=== PATIENT | female | born 1995 | race Caucasian/White ===

== ENCOUNTER 2016-08-14 10:40 | Inpatient (IN) | payer MEDICAID ==
[~2016-08-14] VITALS: Ht 157.5 cm; Wt 69.5 kg
[2016-08-15] MEDS ORDERED: IBUPROFEN 600 MG TAB PO PRN (18:30)
[2016-08-15] MEDS ORDERED: BUTORPHANOL 2 MG INJ IV PRN (18:30)
[2016-08-15] MEDS ORDERED: OXYTOCIN 30 UNITS/LR 500 ML IV SCH ×2 (18:30)
[2016-08-15] MEDS ORDERED: MISOPROSTOL 200 MCG TAB PR PRN (18:30)
[2016-08-15] MEDS ORDERED: LACTATED RINGER'S 1,000 ML IV PRN (18:30)
[2016-08-15] MEDS ORDERED: LIDOCAINE 1% (MPF) 30 ML INJ INJ PRN (18:30)
[2016-08-15] MEDS ORDERED: CARBOPROST 250 MCG INJ IM PRN (18:30)
[2016-08-15] MEDS ORDERED: OXYTOCIN 30 UNITS/LR 500 ML IV PRN (18:30)
[2016-08-15] MEDS ORDERED: METHYLERGONOVINE 0.2 MG INJ IM PRN (18:30)
[2016-08-15] MEDS: LACTATED RINGER'S 1,000 ML IV SCH (18:30)
[2016-08-15 18:41] VITALS: Ht 157.5 cm; Wt 69.5 kg
[2016-08-15 18:46] VITALS: BP 106/66; PULSE 80; RESP 18
[2016-08-15 19:15] LABS: HEMATOCRIT 36.6 % (37.0-47.0); HEMOGLOBIN 12.4 g/dl (12.0-16.0); MEAN CORPUSCULAR HGB CONC 33.7 g/dl (32.0-37.0); MEAN PLATELET VOLUME 9.1 fl (7.4-10.4); PLATELET COUNT 219 10^3/UL (140-440); RED BLOOD COUNT 3.74 10^6/ul (4.20-5.40); RED CELL DISTRIBUTION WIDTH 14.9 % (11.5-14.5); UNCORRECTED WBC 9.8 10^3/ul (4.8-10.8); WHITE BLOOD COUNT 9.8 10^3/ul (4.8-10.8)
[2016-08-15 19:25] LABS: INR 1.03; PROTIME 13.5 Sec (12.2-14.2); PT RATIO 1.1
[2016-08-15 19:26] LABS: PARTIAL THROMBOPLASTIN TIME 28.1 Sec (25.0-35.0)
[2016-08-15 19:31] LABS: CONDITION 1
[2016-08-15 19:32] LABS: LH ANALYZER COMMENTS 1
[2016-08-15] MEDS ORDERED: DINOPROSTONE 10 MG VAG SUPP VAG ONE (20:00)
[2016-08-15 20:31] LABS: ANISOCYTOSIS 1+; PLATELET ESTIMATE PLT APPEAR ADEQUATE
[2016-08-16] MEDS: LACTATED RINGER'S 1,000 ML IV SCH ×4 (02:15→23:37)
[2016-08-16] MEDS ORDERED: MINERAL OIL LIGHT 10 ML VIAL TOP ONE (08:00)
--- NOTE | 2016-08-16 18:43 | HP ---
Date/Time of Note Date/Time of Note DATE: 08/16/16 TIME: 18:40 OB - History Hx of Present Free Text/Dictation admitted for elective iduction of the labor at 40 weeks Last Menstrual Period: November 10, 2015 Estimated Due Date: Aug 14, 2016 : 1 Para: 0 Care: Good Care Ultrasounds: Normal mid trimester US Obstetrical Complications: None Medical Complications: None Past Family/Social History * Past Medical, Surgical, Family and Obstetric Histories reviewed from chart. Blood Type: A+ Rubella: immune RPR/VDRL: Negative GBS Status: Negative HBsAG: Negative OB Admission Exam Vital Signs Vital Signs Vital Signs Date Time Temp Pulse Resp B/P Pulse Ox O2 Delivery O2 Flow Rate FiO2 08/15/16 18:46 99.0 80 18 106/66 Room Air Physical Exam HEENT: WNL Heart: Rhythm Normal Lungs: Clear, Equal Abdomen: WNL Extremities: Normal Reflexes: Normal Cervical Dilatation: None Station: -3 Membranes: Intact Heart Rate: 140's Accelerations: Accelerations Present Decelerations: No Decelerations Varibility: Marked Contractions on Admission: None Last 72 hours Lab Results CBC & BMP 08/15/16 18:30 OB Assessment/Plan Reason for admission: induction of labor Other Assessment: term gestation Induction Method: per Misoprostol Protocol MYRA HERNANDEZ MD Aug 16, 2016 18:43
[2016-08-16] MEDS ORDERED: OXYTOCIN 30 UNITS/LR 500 ML IV SCH (22:30)
[2016-08-17] MEDS ORDERED: FENTAnyl 2MCG/ML-ROPIV 0.2% 100 ML ONE (01:47)
[2016-08-17] MEDS ORDERED: GENTAMICIN 120 MG/NS (PMX) 100 ML IVPB ONE (02:00)
[2016-08-17] MEDS: LACTATED RINGER'S 1,000 ML IV SCH ×4 (02:00→10:36)
[2016-08-17] MEDS: AMPICILLIN 2 GM/NS (PMX) 100 ML IVPB SCH ×5 (02:24→17:29)
[2016-08-17] MEDS ORDERED: KETOROLAC 30 MG INJ IV PRN (03:00)
[2016-08-17] MEDS ORDERED: morphine 2 MG INJ IV PRN (03:00)
[2016-08-17] MEDS ORDERED: NALOXONE (0.4 MG/ML) INJ IV PRN (03:00)
[2016-08-17] MEDS ORDERED: FENTAnyl 2MCG/ML-ROPIV 0.2% 100 ML BAG EPI SCH (03:00)
[2016-08-17] MEDS ORDERED: DIPHENHYDRAMINE 50 MG INJ IV PRN (03:00)
[2016-08-17] MEDS ORDERED: HYDROmorphONE 1 MG/ML SYG IV PRN ×2 (03:00)
[2016-08-17] MEDS ORDERED: ONDANSETRON 4 MG INJ IV PRN (03:00)
[2016-08-17] MEDS ORDERED: morphine 4 MG/ML VIAL IV PRN (03:00)
[2016-08-17] MEDS: ACETAMINOPHEN 325 MG TAB PO PRN ×2 (06:08→16:29)
[2016-08-17] MEDS ORDERED: GENTAMICIN 80 MG/NS (PMX) 50 ML IVPB SCH (10:00)
[2016-08-17] MEDS ORDERED: MINERAL OIL LIGHT 10 ML VIAL TOP ONE (15:30)
--- NOTE | 2016-08-17 19:44 | LDN ---
Date/Time of Note Date/Time of Note DATE: 08/17/16 TIME: 19:41 Delivery Summary V/E of a viable infant over intact perneum Assisted Vaginal Delivery: Vacuum (vacuome extraction was done because of deep variable decelerations) Meconium: none Perineum intact?: Yes Perineal laceration repair: small vaginal llaceration was repaired with 2 0 Vicryl Anesthesia type: Epidural Estimated blood loss: 300 Sponge & Needle done & correct: Yes All needle counts correct: Yes Any foreign bodies felt in the: No Problems: Delivery Information Sex Infant Sex: female Apgars 1 Minute: 8 5 Minute: 9 Suctioning Nose & mouth suctioned at gay: Yes Delee suction performed: No Umbilical Cord Umbilical cord with: 3 Vessels Cord presentations: nuchal cord Nuchal cord present X: 1 Cord Blood was obtained: Yes Mother & Baby Disposition Disposition Mom & Baby to Maternity; Good: Yes (mother and baby were recovered in good condition ) Mom transferred to: Other (maternity ) Baby to NICU: No MYRA HERNANDEZ MD Aug 17, 2016 19:44
[2016-08-17 22:20] VITALS: BP 105/65; PULSE 66; RESP 20
--- NOTE | 2016-08-17 22:31 | DELSUM ---
Delivery Summary A-C Datetime Report Generated by N: 08/17/2016 22:31 DELIVERY PERSONNEL Cemetery Laborer: Canuto, Alycia MATERNAL INFORMATION Delivery Anesthesia: Epidural (Annotations: Data stored by [facility] on behalf of user) Medications in Delivery: LR WITH 30 UNITS OF PITOCIN Estimated Blood Loss (ml): 300 Placenta Cultured: No Maternal Complications: Maternal Fever LABOR SUMMARY EDC: 08/14/2016 00:00 No. Babies in Womb: 1 Attempted: No Labor Anesthesia: Epidural LABOR INFORMATION Reason for Induction: Postterm Onset of Labor: 08/17/2016 01:30 Complete Dilatation: 08/17/2016 16:00 Cervical Ripening Agents: Cervidil Oxytocin: Augmentation Group B Beta Strep: Negative Antibiotics # of Doses: 8 Antibiotics Time of Last Dose: 08/17/2016 17:30 Steroids Given: None Reason Steroids Not Administered: Not Applicable MEMBRANES Membranes Rupture Method: Spontaneous Membranes Rupture Method: Spontaneous Rupture of Membranes: 08/17/2016 15:44 Length of Rupture (hr): 3.62 Amniotic Fluid Color: Clear Amniotic Fluid Amount: Small Amniotic Fluid Amount: Small Amniotic Fluid Odor: None Amniotic Fluid Odor: Normal STAGES OF LABOR Stage 1 hr: 14 Stage 1 min: 30 Stage 2 hr: 3 Stage 2 min: 21 Stage 3 hr: 0 Stage 3 min: 5 Total Time in Labor hr: 17 Total Time in Labor min: 56 VAGINAL DELIVERY Episiotomy: None Laceration Extension: N/A Laceration Type: Vaginal Laceration Repair: Yes Initial Vag Sponge Count: 20 Final Vag Sponge Count: 20 Initial Vag Sharps Count: 1 Final Vag Sharps Count: 2 Sponge Count Correct: Yes; Vaginal Sweep Performed Sharps Count Correct: Yes Count Comment: VAGINAL CURETTE ADDED BABY A INFORMATION Infant Delivery Date/Time: 08/17/2016 19:21 Method of Delivery: Vaginal Method of Delivery: Vaginal Born in Route : No : N/A Forceps: N/A Vacuum Extraction: Successful Shoulder Dystocia : No ASSISTED DELIVERY BABY A Catheter Prior to Procedure: No Position Vacuum/Forcep Apply: Left Occipital Anterior Vacuum Number of Pulls: 2 Vacuum Number of PopOffs: 0 Reduce Pressure btwn Ctx: Yes Vacuum Sensor Specialist: [employer] Total Time Vacuum Applied: 2MIN SHOULDER DYSTOCIA BABY A Infant Delivery Date/Time: 08/17/2016 19:21 PRESENTATION/POSITION BABY A Presentation: Cephalic Cephalic Presentation: Vertex Vertex Position: Left Occipital Anterior Breech Presentation: N/A PLACENTA INFORMATION BABY A Placenta Delivery Time : 08/17/2016 19:26 Placenta Method of Delivery: Spontaneous Placenta Status: Delivered SCORES BABY A Heart Rate 1 min: >100 bpm Resp Effort 1 min: Good Cry Reflex Irritability 1 min: Cough/Sneeze/Pulls Away Muscle Tone 1 min: Active Motion Color 1 min: Blue/Pale Resuscitation Effort 1 min: Tactile Stimulation SCORE 1 MIN: 8 Heart Rate 5 min: >100 bpm Resp Effort 5 min: Good Cry Reflex Irritability 5 min: Cough/Sneeze/Pulls Away Muscle Tone 5 min: Active Motion Color 5 min: Body Landing, Extremit Blue SCORE 5 MIN: 9 INFANT INFORMATION BABY A Gestational Age at Delivery: 40.3 Gestational Status: Full Term- 39- 40.6 Weeks Infant Outcome : Liveborn Infant Condition : Stable Infant Sex: Female Infant Sex: Female IDENTIFICATION/MEDS BABY A ID Band Number: [id number] ID Band Location: Right Leg; Left Arm Sensor Applied: Yes Sensor Number: [id number] Sensor Location : Cord Clamp Vitamin K Given : Aquamephyton 1 mg IM; Left Thigh Erythromycin Given: Given Both Eyes WEIGHT/LENGTH BABY A Birthweight (gm): 3220 Weight (lb): 7 Weight (oz): 2 Length (in): 20.00 Infant Length (cm): 50.80 CORD INFORMATION BABY A No. Cord Vessels: 3 Nuchal Cord : Around Neck x1, Loose Cord Blood Taken: Yes Infant Suction: Mouth; Nose ASSESSMENT BABY A Complications: Decreased Variability; Extended Tachycardi; Multiple Late Decels; Multi ple Variable Decels Physical Findings at Delivery: Molding of the Head Physical Findings- Other: VACUUM USED Infant Respirations: Appears Normal Explosive Ordnance Manager/ALS Called : No Care By: DIANA/LEISA Transferred To: Remains with Mother
[2016-08-17] MEDS ORDERED: BENZOCAINE 20% 56 ML SPRAY TOP PRN (23:30)
[2016-08-17] MEDS ORDERED: WITCH HAZEL/GLYCERIN PAD PR PRN (23:30)
[2016-08-17] MEDS ORDERED: ZOLPIDEM 5 MG TAB PO PRN (23:30)
[2016-08-17] MEDS ORDERED: LANOLIN 7 GM TUBE TOP PRN (23:30)
[2016-08-17] MEDS ORDERED: CARBOPROST 250 MCG INJ IM PRN (23:30)
[2016-08-17] MEDS ORDERED: MISOPROSTOL 200 MCG TAB PR PRN (23:30)
[2016-08-17] MEDS ORDERED: DIBUCAINE 1% 30 GM OINT PR PRN (23:30)
[2016-08-17] MEDS ORDERED: OXYTOCIN 30 UNITS/LR 500 ML IV PRN (23:30)
[2016-08-17] MEDS ORDERED: METHYLERGONOVINE 0.2 MG INJ IM PRN (23:30)
[2016-08-17] MEDS ORDERED: ACETAMINOPHEN/CODEINE #3 TAB PO PRN ×2 (23:30)
[2016-08-18] VITALS (7 sets, daily range): BP systolic 94–116; BP diastolic 50–61; PULSE 73–101; RESP 17–21
[2016-08-18] MEDS: IBUPROFEN 600 MG TAB PO SCH ×5 (00:13→23:41)
[2016-08-18] MEDS: LACTATED RINGER'S 1,000 ML IV* SCH ×3 (00:35→18:18)
[2016-08-18] MEDS: AMPICILLIN/SULB 3 GM/NS (PMX) 100 ML IVPB SCH ×5 (00:35→23:41)
[2016-08-18 08:28] LABS: HEMATOCRIT 30.2 % (37.0-47.0); HEMOGLOBIN 10.3 g/dl (12.0-16.0); LYMPHOCYTES # 2.2 10^3/ul (0.8-2.9); LYMPHOCYTES % 11.1 % (15.0-51.0); MEAN CORPUSCULAR HEMOGLOBIN 33.2 pg (29.0-33.0); MEAN CORPUSCULAR HGB CONC 34.1 g/dl (32.0-37.0); MEAN CORPUSCULAR VOLUME 97.3 fl (82.0-101.0); MEAN PLATELET VOLUME 9.1 fl (7.4-10.4); NEUTROPHIL # 16.3 10^3/ul (1.6-7.5); NEUTROPHILS % 83.9 % (39.0-77.0); PLATELET COUNT 168 10^3/UL (140-440); RED BLOOD COUNT 3.11 10^6/ul (4.20-5.40); RED CELL DISTRIBUTION WIDTH 14.9 % (11.5-14.5); UNCORRECTED WBC 19.5 10^3/ul (4.8-10.8); WHITE BLOOD COUNT 19.5 10^3/ul (4.8-10.8)
[2016-08-18 08:36] LABS: CONDITION 1; LH ANALYZER COMMENTS 1
[2016-08-18] MEDS: SENNA/DOCUSATE NA (8.6MG/50MG) TAB PO SCH ×2 (09:00→21:00)
[2016-08-18] MEDS: MAGNESIUM HYDROXIDE 30ML CUP PO SCH ×2 (09:00→21:00)
--- NOTE | 2016-08-18 23:00 | QN ---
Documentation Comment Laborist Asked by RN to see pt at 11pm because primary MD had not rounded on pt today. Pt is PPD #1 s/p uncomplicated VAVD with small vaginal laceration. Pt doing well and w/o complaints. Pain c/w PO meds, ambulating, tolerating POs, voiding w/o difficulty and . O: VS 98.0 101/57 101 19 Gen: well appearing, NAD CV: RRR, nl s1s2 Resp: CTAB Abd: soft, NTND, FF 2FB below umb Ext: BLE symmetric, NT, no edema Labs: Admission Hgb 12.4-> EBL 300ml > Postop Hgb 10.3 A/P: PPD#1 progressing toward goals Continue routine care support Encourage ambulation Likely d/c home on PPD#2 GEOVANI BURNS MD Aug 18, 2016 23:00
--- NOTE | 2016-08-18 23:14 | DS ---
Date/Time of Note Date/Time of Note Home next day DATE: 08/18/16 TIME: 23:12 Obstetrical Discharge Record Final Diagnosis Final Diagnosis: Term delivered Vaginal Delivery Obstetrical Delivery: Spontaneous, Laceration, Repaired Complications Augmentation: Yes Induction: Yes Condition on Discharge Physical Assessment Last Vitals: see nurses notes Voiding: Yes Bowel Movement: Yes Breast: Soft, non-tender, Filling Fundus: Firm Abdomen and Incision: soft BS + Episiotomy: NA Calf Tenderness: No Patient Condition: Good MYRA HERNANDEZ MD Aug 18, 2016 23:14
--- NOTE | 2016-08-18 23:15 | PD.PPDC ---
[employer] Discharge Instruction Provider Information Physician Information 89 y/o female had vaginal delivery at term Diagnosis Final Diagnosis: S/P vaginal delivery Condition Patient Condition: Good Diet Diet: Resume Regular Diet Activity/Restrictions Activity: Normal Activity May Shower Restrictions: Nothing in the Vagina Return to Work or School: Oct 01, 2016 Follow-up Follow-up with Physician: 4, Week/Weeks (in clinic) Return to clinic for OB Instructions: Breast Tenderness Depression MYRA HERNANDEZ MD Aug 18, 2016 23:15
[2016-08-18] MEDS ORDERED: IBUP-1542 PO (23:17)
[2016-08-19 04:15] VITALS: BP 106/81; PULSE 81; RESP 18
[2016-08-19] MEDS: IBUPROFEN 600 MG TAB PO SCH ×2 (05:42→11:05)
[2016-08-19] MEDS: AMPICILLIN/SULB 3 GM/NS (PMX) 100 ML IVPB SCH ×2 (05:43→11:05)
[2016-08-19 08:30] VITALS: BP 103/49; PULSE 73; RESP 16
[2016-08-19] MEDS: MAGNESIUM HYDROXIDE 30ML CUP PO SCH (09:00)
[2016-08-19] MEDS: SENNA/DOCUSATE NA (8.6MG/50MG) TAB PO SCH (09:00)
[2016-08-19] MEDS ORDERED: MEASLES,MUMPS,RUBELLA VACCINE INJ SC* ONE (09:00)
[2016-08-19] MEDS ORDERED: DIPHTH/TET/ACEL PERTUSS (ADULT) 0.5 ML VIAL IM* ONE (09:00)
[2016-08-19] MEDS ORDERED: VARICELLA VACCINE LIVE/PF 1,350 UNIT/0.5 ML ML SC* ONE (09:00)
[2016-08-19 09:45] LABS: BASOPHILS % 0.2 % (0.0-2.0); EOSINOPHILS # 0.1 10^3/ul (0.0-0.5); EOSINOPHILS % 0.4 % (0.0-7.0); HEMATOCRIT 32.1 % (37.0-47.0); HEMOGLOBIN 10.7 g/dl (12.0-16.0); LYMPHOCYTES # 2.5 10^3/ul (0.8-2.9); LYMPHOCYTES % 18.2 % (15.0-51.0); MEAN CORPUSCULAR HGB CONC 33.5 g/dl (32.0-37.0); MEAN CORPUSCULAR VOLUME 98.7 fl (82.0-101.0); MEAN PLATELET VOLUME 8.9 fl (7.4-10.4); MONOCYTE # 0.7 10^3/ul (0.3-0.9); MONOCYTES % 4.8 % (0.0-11.0); NEUTROPHIL # 10.5 10^3/ul (1.6-7.5); NEUTROPHILS % 76.4 % (39.0-77.0); PLATELET COUNT 189 10^3/UL (140-440); RED BLOOD COUNT 3.25 10^6/ul (4.20-5.40); RED CELL DISTRIBUTION WIDTH 14.8 % (11.5-14.5); UNCORRECTED WBC 13.7 10^3/ul (4.8-10.8); WHITE BLOOD COUNT 13.7 10^3/ul (4.8-10.8)
[2016-08-19 09:47] LABS: CONDITION 1; LH ANALYZER COMMENTS 1
== END 2016-08-19 12:48 | disposition home or self-care (01) | DRG 775 ==
LOC: EDSTATUS 17:30 → L-D 08-15 17:33 → PP1 08-17 22:12
PROVIDERS: ADMIT Obstetrics & Gynecology; ATTEND Obstetrics & Gynecology
PROC: 10E0XZZ Delivery of Products of Conception, External Approach (ICD-10-PCS; principal; 2016-08-17)
PROC: 0UQGXZZ Repair Vagina, External Approach (ICD-10-PCS; 2016-08-17)
DX: O69.81X0 Labor and delivery complicated by cord around neck, without compression, not applicable or unspecified (principal); O71.4 Obstetric high vaginal laceration alone; O48.0 Post-term pregnancy; Z3A.40 40 weeks gestation of pregnancy; Z37.0 Single live birth
CPT/HCPCS: 62319; 85025; 85610; 85730; 86592; 86900; 86901; 87040; 87086; 88307; 90715; 90716; 99464; A4310; J0290; J0295; J1580; J2590; J3010; J7120